=== PATIENT | male | born 1965 | race Caucasian/White ===

== ENCOUNTER 2017-05-26 08:48 | Day surgery (SDC) | payer OTHER ==
[~2017-05-26] VITALS: Ht 175.3 cm; Wt 80.1 kg
[2017-05-26] VITALS (8 sets, daily range): BP systolic 112–148; BP diastolic 75–91; PULSE 44–76; RESP 13–18; Ht 175.3 cm; Wt 80.1 kg
[2017-05-26] MEDS ORDERED: SOD CHLORIDE 0.9% 1,000 ML IV SCH (09:30)
[2017-05-26] MEDS ORDERED: CLINDAMYCIN 600 MG/D5W (PMX) 50 ML IVPB ONE ×2 (09:30→12:17)
--- NOTE | 2017-05-26 09:57 | RADRPT ---
PROCEDURE: XR Chest. CLINICAL INDICATION: Preoperative TECHNIQUE: Single frontal chest x-ray. COMPARISON: None. FINDINGS: The lungs are clear of acute infiltrates, edema, effusions, or masses.. The cardiomediastinal silho uette is unremarkable. The osseous structures are intact. IMPRESSION: No acute cardiopulmonary disease. RPTAT: GG .Jose López MD, MD Date Time Electronically viewed and signed by .Jose López MD, on 05/26/2017 09:57 .L/
[2017-05-26 10:00] LABS: BASOPHILS % 0.2 % (0.0-2.0); EOSINOPHILS # 0.2 10^3/ul (0.0-0.5); EOSINOPHILS % 3.6 % (0.0-7.0); HEMATOCRIT 42.9 % (42.0-52.0); HEMOGLOBIN 14.8 g/dl (14.0-18.0); LYMPHOCYTES # 2.3 10^3/ul (0.8-2.9); LYMPHOCYTES % 37.3 % (15.0-51.0); MEAN CORPUSCULAR HGB CONC 34.5 g/dl (32.0-37.0); MEAN CORPUSCULAR VOLUME 84.1 fl (82.0-101.0); MEAN PLATELET VOLUME 10.7 fl (7.4-10.4); MONOCYTE # 0.4 10^3/ul (0.3-0.9); MONOCYTES % 6.7 % (0.0-11.0); NEUTROPHIL # 3.2 10^3/ul (1.6-7.5); NEUTROPHILS % 51.9 % (39.0-77.0); PLATELET COUNT 196 10^3/UL (140-415); RED CELL DISTRIBUTION WIDTH 13.1 % (11.5-14.5); WHITE BLOOD COUNT 6.1 10^3/ul (4.8-10.8)
[2017-05-26 10:14] LABS: ALBUMIN 4.3 g/dl (3.3-4.9); ALBUMIN/GLOBULIN RATIO 1.26; BILIRUBIN,INDIRECT 0.5 mg/dl (0-1.1); BILIRUBIN,TOTAL 0.5 mg/dl (0.2-1.3); INR 0.91; PROTIME 12.2 Sec (12.2-14.2); TOTAL PROTEIN 7.7 g/dl (6.1-8.1)
[2017-05-26 10:15] LABS: PARTIAL THROMBOPLASTIN TIME 29.7 Sec (25.0-35.0)
[2017-05-26 10:19] LABS: CALCIUM 9.3 mg/dl (8.4-10.2); CREATININE 1.07 mg/dl (0.61-1.24); POTASSIUM 4.3 mmol/L (3.5-5.1)
[2017-05-26] MEDS ORDERED: BUPIVACAINE 0.25% (MPF) 30 ML INJ ONE ×2 (11:58→12:04)
[2017-05-26] MEDS ORDERED: METOCLOPRAMIDE 10 MG INJ ONE (12:12)
[2017-05-26] MEDS ORDERED: MIDAZOLAM 1 MG/ML 2 ML INJ ONE (12:12)
[2017-05-26] MEDS ORDERED: ROCURONIUM 50 MG INJ ONE (12:17)
[2017-05-26] MEDS ORDERED: PROPOFOL 20 ML ONE (12:17)
[2017-05-26] MEDS ORDERED: HYDROmorphONE 2 MG/ML SYG ONE (12:40)
[2017-05-26] MEDS ORDERED: NEOSTIGMINE 3 MG/3 ML SYRINGE ONE (12:55)
[2017-05-26] MEDS ORDERED: KETOROLAC 30 MG INJ ONE (12:55)
[2017-05-26] MEDS ORDERED: GLYCOPYRROLATE 0.4 MG INJ ONE (12:55)
[2017-05-26] MEDS ORDERED: METOCLOPRAMIDE 10 MG INJ IV PRN (13:00)
[2017-05-26] MEDS ORDERED: DIPHENHYDRAMINE 50 MG INJ IV PRN (13:00)
[2017-05-26] MEDS ORDERED: OXYCODONE/ACETAMINOPHEN (5/325) TAB PO PRN ×2 (13:00)
[2017-05-26] MEDS ORDERED: HYDROmorphONE (0.2 MG/ML) 10ML SYG IV PRN ×3 (13:00)
[2017-05-26] MEDS ORDERED: MEPERIDINE 25 MG INJ IV PRN (13:00)
[2017-05-26] MEDS ORDERED: ONDANSETRON 4 MG INJ IV PRN (13:00)
--- NOTE | 2017-05-26 13:27 | OPR ---
Date/Time of Note Date/Time of Note DATE: 05/26/17 TIME: 13:20 Operative Report Procedure Date: May 26, 2017 Preoperative Diagnosis internal and external hemorrhoids posterior fissure Postoperative Diagnosis same Operation Performed 1. proctoplasty for prolapse of mucous membranes cpt code 21694 2. ligation of internal hemorrhoids multiple procedures cpt code 58753 3. rigid sigmoidoscopy 4. posterior anal fissurectomy 5. therapeutic injection of subcutaneous marcaince cpt code 24872 Surgeon: Susan HOOD Anesthesia Type: general Estimated Blood Loss: 0 - 10 ml's Specimens posterior anal fissure Grafts/Implants: none Complications: no Indications This is a 52-year-old male with internal/external hemorrhoids and a posterior anal fissure. He requires surgical repair. Risks alternatives benefits and percent were discussed the patient. Patient expresses understanding and consents to the operation. Procedure Description Patient is taken to the OR and prepped and draped in usual sterile fashion. Surgical timeout was performed IV antibiotics given. Initial rigid sigmoidoscopy was performed. There is no evidence of any masses or lesions. Prep was fair. THC device was used to start the internal hemorrhoidal artery ligation. Under ultrasound guidance hemorrhoidal arteries were identified and suture ligated with [id number] 2-0 Vicryl suture and multiple regions up to 6 areas. The THC device was then used to perform the proctoplasty by running the 2-0 Vicryl from proximal to distal all the way down to the dentate line in multiple regions approximately 6 in total. Attention was then paid to the posterior fissure. Using a 15 blade the posterior fissure was excised. Cautery was used to complete excision. The surgical bed was then cauterized for hemostasis. Therapeutic subcu times Marcaine was injected throughout the incision site along the posterior fusion in all around the anal mucosa. The anus was then reexamined manually for patency and there was good patency. Dry dressings were applied. Susan HOOD May 26, 2017 13:27
[2017-05-26] MEDS ORDERED: HYDROCODONE/APAP (5/325) TAB PO ONE (13:30)
--- NOTE | 2017-05-27 08:24 | RADRPT ---
Vent Rate: 56 bpm RR Interval: 0 msec [place] Interval: 174 msec QRS Duration: 100 msec QT Interval: 416 msec QTC Interval: 401 msec P-R-T [place]: 48 - 75 - 69 degrees Sinus bradycardia Otherwise normal ECG Electronically Signed By: Edna Holliday [id number]
== END 2017-05-26 15:15 | disposition home or self-care (01) ==
LOC: SDS 08:48
PROVIDERS: ATTEND Surgery
DX: K64.8 Other hemorrhoids (principal); K64.4 Residual hemorrhoidal skin tags; K60.2 Anal fissure, unspecified; K62.3 Rectal prolapse
CPT/HCPCS: 45505; 46946; 71010; 80053; 85025; 85610; 85730; 88304; 93005; J1170; J1885; J2250; J2710; J2765

== ENCOUNTER 2017-05-27 06:44 | Emergency (ER) | payer OTHER ==
[~2017-05-27] VITALS: Wt 84.5 kg
[2017-05-27] MEDS ORDERED: LIDOCAINE 2% 20 ML UROJET SYRINGE MM ONE (07:00)
--- NOTE | 2017-05-27 07:12 | ERD ---
ER Documentation Chief Complaint Date/Time DATE: 05/27/17 TIME: 07:09 Chief Complaint URINE RETENTION, HEMORRHOIDECTOMY PROCEDURE DONE YESTERDAY HPI Very pleasant 52-year-old male who presents with urinary retention. Patient had hemorrhoidectomy yesterday by Dr. Bradley. The patient has not been able to urinate since the anesthesia. The patient now describes suprapubic abdominal fullness and pressure and pain that is moderate, constant associated with urinary retention. He denies any fevers or chills, no flank pain. He states scant bleeding from the rectum that was told to be expected after hemorrhoidectomy. ROS All systems reviewed and are negative except as per history of present illness. Medications Home Meds No Active Prescriptions or Reported Meds Allergies Allergies: Coded Allergies: Sulfa (Sulfonamide Antibiotics) (Verified Allergy, Severe, 05/26/17) Penicillins (Unverified Allergy, Unknown, 05/25/17) aspirin (Unverified Allergy, Unknown, 05/25/17) ibuprofen (Unverified Allergy, Unknown, 05/25/17) PMhx/Soc History of Surgery: No Anesthesia Reaction: No Hx Neurological Disorder: No Hx Respiratory Disorders: No Hx Cardiac Disorders: No Hx Psychiatric Problems: No Hx Miscellaneous Medical Probl: No Hx Alcohol Use: Yes (FORMER) Hx Substance Use: No FmHx Family History: No diabetes Physical Exam Vitals Vital Signs Date Time Temp Pulse Resp B/P Pulse Ox O2 Delivery O2 Flow Rate FiO2 05/27/17 06:50 97.4 83 18 146/76 99 Physical Exam General: Well developed, well nourished, uncomfortable Head: Normocephalic, atraumatic. Eyes: Pupils equally reactive, EOM intact ENT: Moist mucous membranes Neck: Supple, no lymphadenopathy Respiratory: Lungs clear bilaterally, no distress Cardiovascular: RRR, no murmurs, rubs, or gallops Abdominal: Soft, suprapubic fullness and tenderness : Rectal external examination with no active bleeding, internal exam deferred MSK: No edema, no unilateral swelling, 5/5 strength Neurologic: Alert and oriented, moving all extremities, normal speech, no focal weakness, no cerebellar signs Skin: No rash Psych: Normal mood Results 24 hrs Current Medications Medications (Trade) Dose Ordered Sig/Tony Route PRN Reason Start Time Stop Time Status Last Admin Dose Admin Lidocaine (Lidocaine 2% Urojet) 20 ml ONCE ONCE MM 05/27/17 07:00 05/27/17 07:01 DC 05/27/17 07:32 Procedures/MDM LAB INTERPRETATION: Urinalysis pending MEDICAL DECISION MAKING: The patient presents with signs and symptoms consistent with postanesthesia urinary retention. No signs or symptoms concerning for cauda equina or cord compression. This is likely normal postoperative course with unfortunate adverse reaction to anesthesia. The patient will benefit from decompression with Valente catheter, leg bag and removal in 2 days. Low concern for BPH or UTI. ER COURSE: A Valente catheter was placed with output of 1000 cc of urine. The patient had dramatic improvement and relief. A urinalysis and urine culture has been sent. Given the temporal relation to anesthesia I do not believe this is consistent with UTI do not feel the patient requires empiric antibiotics. The patient has penicillin and sulfa allergies therefore if indicated Macrobid may be an appropriate choice. Urine culture will be sent and followed up. The patient was advised to return in 2 days for Valente catheter removal. I kept the patient and/or family informed of laboratory and diagnostic imaging results throughout the emergency room course. DISPOSITION PLAN: We discussed follow up with the patient's primary care doctor within 24 to 48 hours as needed. We also discussed return to the emergency room for worsening symptoms or worsening condition. Outpatient referral: [None required] Discharge Medications: None Departure Diagnosis: Primary Impression: Acute urinary retention Condition: Stable FREDDIE HURT MD May 27, 2017 07:12
[2017-05-27 07:47] LABS: ADD UMIC YES; UR ASCORBIC ACID NEGATIVE (NEGATIVE); UR BILIRUBIN (Dip) NEGATIVE (NEGATIVE); UR BLOOD (Dip) 1+ mg/dL (NEGATIVE); UR CLARITY CLEAR (CLEAR); UR COLOR YELLOW (YELLOW); UR GLUCOSE (Dip) NEGATIVE (NEGATIVE); UR KETONES (Dip) NEGATIVE (NEGATIVE); UR LEUKOCYTE ESTERASE (Dip) NEGATIVE Leu/ul (NEGATIVE); UR NITRITE (Dip) NEGATIVE (NEGATIVE); UR RBC 0 /HPF (0-5); UR SPECIFIC GRAVITY (Dip) 1.012 (1.003-1.030); UR TOTAL PROTEIN (Dip) NEGATIVE (NEGATIVE); UR UROBILINOGEN (Dip) NEGATIVE (NEGATIVE)
[2017-05-28] MEDS ORDERED: HYDR-906 PO (20:14)
[2017-05-28] MEDS ORDERED: POLY17PO3 PO (22:02)
[2017-05-28] MEDS ORDERED: DOCU-144 PO (22:02)
== END 2017-05-27 07:54 | disposition home or self-care (01) ==
LOC: E/R 06:44
DX: R33.9 Retention of urine, unspecified (principal)
CPT/HCPCS: 51702; 81001; 87086; Z7502; Z7610

== ENCOUNTER 2017-05-28 19:00 | Emergency (ER) | payer OTHER ==
[~2017-05-28] VITALS: Ht 177.8 cm; Wt 81.0 kg
[2017-05-28 19:08] VITALS: Ht 177.8 cm; Wt 81.0 kg
[2017-05-28 19:52] VITALS: BP 151/92; PULSE 78; RESP 20; TEMP 98.3
[2017-05-28] MEDS ORDERED: HYDR-906 PO (20:14)
[2017-05-28] MEDS ORDERED: morphine 10 MG INJ IM ONE (20:30)
[2017-05-28] MEDS ORDERED: MAGNESIUM CITRATE 300 ML BTL PO ONE (20:30)
--- NOTE | 2017-05-28 21:55 | RADRPT ---
PROCEDURE: CT abdomen and pelvis without intravenous contrast. CLINICAL INDICATION: Abdominal pain status post hemorrhoidectomy. TECHNIQUE: CT of the abdomen/pelvis was performed utilizing axial images with reconstructions in s agittal and coronal planes. The administered radiation dose is CTDI 12.4 mGy, DLP 722 mGy-cm. COMPARISON: No pertinent prior examinations were submitted for comparison. FINDINGS: Visualized Chest: The visualized lung bases are clear. Abdomen: The liver, spleen, pancreas, gallbladder,and adrenal glands are unremarkable. The kidneys are without hydronephrosis. No definite urinary calculi are seen. There is no evidence of bowel obstruction. The appendix is normal. No intra-abdominal free air is seen. There is no evidence of intra-abdominal adenopathy or free fluid. A few calcified mesenteric lymph nodes are noted, likely due to previous infection or inflammation. Pelvis: There is no evidence of pelvic adenopathy or free fluid. The prostate is mildly enlarged, measuring up to 5.2 cm in transverse dimension. The urinary bladder is unremarkable. There are tiny bilateral fat containing inguinal hernias. No definite abnormalities are seen in the perirectal space or in the perineum. Osseous structures: Unremarkable. IMPRESSION: No acute findings. Mildly enlarged prostate. Tiny bilateral fat containing inguinal hernias. RPTAT: HIKT .Gato Koehler MD, MD Date Time Electronically viewed and signed by .Gato Koehler MD, MD on 05/28/2017 21:55 .T/
[2017-05-28] MEDS ORDERED: DOCU-144 PO (22:02)
[2017-05-28] MEDS ORDERED: POLY17PO3 PO (22:02)
--- NOTE | 2017-05-28 22:38 | ERD ---
ER Documentation Chief Complaint Date/Time DATE: 05/28/17 TIME: 22:30 Chief Complaint sp hemmoroidectomy 2 days ago. C/O rectal pain HPI 52-year-old man status post internal hemorrhoid ligation, anal fissurectomy, proctoplasty presents with lower abdominal pain and cramping 1 day. Patient states he had a mild bowel movement this morning and was able to pass gas but since then has been unable to have a bowel movement and has felt obstipated. He was here yesterday and Valente catheter was placed initially for urinary retention although patient states he feels at this time is able to void normally and would like it removed. He denies fevers or chills, no vomiting, no chest pain or shortness of breath. ROS All systems reviewed and are negative except as per history of present illness. Medications Home Meds Active Scripts Polyethylene Glycol* (Polyethylene Glycol*) 17 Gm Powd.pack, 17 GM PO DAILY for CONSTIPATION, #1 PACKET Prov:AMIRAH DONG MD 05/28/17 Docusate Sodium* (Colace*) 100 Mg Capsule, 100 MG PO BID for CONSTIPATION, #20 CAP Prov:AMIRAH DONG MD 05/28/17 Reported Medications Hydrocodone/Acetaminophen ([place] 5-325 Tablet) Unknown Strength Tablet, 1 EACH PO Q6H, TAB 05/28/17 Allergies Allergies: Coded Allergies: Sulfa (Sulfonamide Antibiotics) (Verified Allergy, Severe, 05/28/17) Penicillins (Unverified Allergy, Unknown, 05/28/17) aspirin (Unverified Allergy, Unknown, 05/28/17) ibuprofen (Unverified Allergy, Unknown, 05/28/17) PMhx/Soc Recent proctoplasty History of Surgery: Yes (hemorroidectomy) Anesthesia Reaction: No Hx Neurological Disorder: No Hx Respiratory Disorders: No Hx Cardiac Disorders: No Hx Psychiatric Problems: No Hx Miscellaneous Medical Probl: No Hx Alcohol Use: Yes (FORMER) Hx Substance Use: No Hx Tobacco Use: No FmHx Family History: No diabetes Physical Exam Vitals Vital Signs Date Time Temp Pulse Resp B/P Pulse Ox O2 Delivery O2 Flow Rate FiO2 05/28/17 19:52 98.3 78 20 151/92 98 Room Air 05/28/17 19:08 98.3 94 20 151/92 98 Physical Exam GENERAL: Well-developed, well-nourished, well-hydrated, in no apparent distress , looks nontoxic in appearance HEENT: Moist mucous membranes, pink conjunctiva, no cervical spine tenderness or step-off deformities, no goiter, no jaundice or icterus, extraocular movements intact without pain. No submandibular induration, and no pharyngeal erythema NEURO: Alert and oriented 3, cranial nerves II through XII intact bilaterally, pupils equal round reactive to light, no focal deficits or facial asymmetry, sensation intact distally Strength 5/5 in upper and lower extremities bilaterally CARDIAC: Regular rate and rhythm, no murmurs rubs or gallops LUNGS: Clear bilaterally no wheezing crackles or stridor ABDOMEN: Soft nontender, no guarding, no rigidity, no rebound, no psoas sign no obturator sign. Normoactive bowel sounds SKIN: Warm and dry to touch, no abrasions, contusions, or hematomas, no lacerations, no ecchymosis, no target lesions, and without ulcers EXTREMITIES: No clubbing cyanosis or edema, calves are bilaterally symmetrical, no Homans sign, no popliteal cord sign. Distal pulses equal and bilateral PSYCH: Normal affect without agitation or irritability Results 24 hrs Current Medications Medications (Trade) Dose Ordered Sig/Tony Route PRN Reason Start Time Stop Time Status Last Admin Dose Admin Magnesium Citrate (Citroma) 300 ml ONCE ONCE PO 05/28/17 20:30 05/28/17 20:31 DC 05/28/17 20:25 Morphine Sulfate (morphine) 4 mg ONCE ONCE IM 05/28/17 20:30 05/28/17 20:31 DC 05/28/17 20:25 Procedures/MDM Valente catheter was removed and patient was able to void without difficulty. I treated him here with morphine 4 mg intramuscular injection. I also administered magnesium citrate 300 cc [address] for constipation. CT scan of the abdomen and pelvis was performed there was no acute inflammatory infectious pathology noted, no bowel obstruction noted. Obtain surgical consultation with Dr. Bui regarding his symptomatology he recommended medications to treat constipation and agreed to follow up with the patient as scheduled. Differential diagnoses considered, included but not limited to appendicitis, cholecystitis, bowel obstruction, pyelonephritis, nephrolithiasis, cystitis, as well as metabolic, hematologic, and electrolyte abnormalities. As well as abscess, cellulitis, fractures, and dislocations. Patient feels much better at this time, and vital signs are normal, symptoms have improved. I did give strict instructions to return to the ED if symptoms continue or worsen, patient will otherwise follow-up with primary care physician. Patient understood instructions and agreed to plan. Disclaimer: Inadvertent spelling and grammatical errors are likely due to EHR/ dictation software use and do not reflect on the overall quality of patient care. Also, please note that the electronic time recorded on this note does not necessarily reflect the actual time of the patient encounter. Departure Diagnosis: Primary Impression: Constipation Constipation type: slow transit constipation Qualified Code: K59.01 - Slow transit constipation Additional Impression: Postoperative pain Condition: Good Patient Instructions: Constipation (Adult) AMIRAH DONG MD May 28, 2017 22:38
== END 2017-05-28 22:41 | disposition home or self-care (01) ==
LOC: E/R 19:00
DX: K59.01 Slow transit constipation (principal); G89.18 Other acute postprocedural pain
CPT/HCPCS: 74176; 96372; J2270; Z7502; Z7610